=== PATIENT | female | born 1985 | race Caucasian/White ===

== ENCOUNTER → 2023-12-03 | Outpatient (CLI) | payer MEDICAID | END | disposition home or self-care (01) | LOC: US 00:29 | PROVIDERS: ATTEND Nurse Practitioner Women's Health | DX: O09.91 Supervision of high risk pregnancy, unspecified, first trimester (principal); N64.4 Mastodynia; Z3A.01 Less than 8 weeks gestation of pregnancy ==

== ENCOUNTER → 2024-05-04 | Outpatient (CLI) | payer MEDICAID | END | disposition home or self-care (01) | LOC: LAB 03:42 | PROVIDERS: ATTEND Nurse Practitioner Women's Health | DX: R73.02 Impaired glucose tolerance (oral) (principal) ==

== ENCOUNTER 2025-02-19 19:48 | Emergency (ER) | payer MEDICAID ==
[2025-02-19] MEDS ORDERED: Ondansetron Hydrochloride 4 MG TAB SL ONE (20:10)
[2025-02-19] MEDS ORDERED: Sulfamethoxazole/Trimethopri 1 TAB TAB PO ONE (20:10)
[2025-02-19] MEDS ORDERED: Acetaminophen/Hydrocodone 5 MG/325 MG TABLET PO ONE (20:10)
[2025-02-19] MEDS ORDERED: SEPTDS PO (20:12)
== END 2025-02-19 20:19 | disposition home or self-care (01) ==
LOC: ED 19:48
DX: L03.031 Cellulitis of right toe (principal)